=== PATIENT | male | born 1955 | race Caucasian/White ===

== ENCOUNTER 2020-05-02 02:01 | Outpatient (CLI) | payer BC, SELFPAY ==
[2020-05-02 19:20] LABS: SARS-CoV-2 RNA PCR Negative
== END 2020-05-02 02:02 | disposition home or self-care (01) ==
LOC: ANHCOVIDDT 02:01
PROVIDERS: PCP Internal Medicine; Visit Provider Internal Medicine Gastroenterology
DX: Z01.812 Encounter for preprocedural laboratory examination (principal); Z20.828 Contact with and (suspected) exposure to other viral communicable diseases
CPT/HCPCS: 87635; C9803; U0003

== ENCOUNTER 2020-05-04 01:51 | Day surgery (SDC) | payer BC, SELFPAY ==
[2020-04-25 10:55] VITALS: BMI 36.3
[2020-05-04 07:37] VITALS: BP 143/72; PULSE 67; RESP 20; TEMP 36.4; O2SAT 98
--- NOTE | 2020-05-04 07:42 | WPDANESEPPF ---
Anes - Initial Pre Proc Eval Procedure: Operation Date: 05/04/20 08:30 Proposed Procedures p Screening Colonoscopy - Aki Augustin MD Date/Time: 05/04/20 07:42 Surgeon: Aki Augustin MD Pre Op Diagnosis: hx of polyps Patient Data Age: 65 Gender: M Height: 1.83 m Weight: 121.8 kg Allergies Allergy/AdvReac Type Severity Reaction Status Date / Time No Known Allergies Allergy Verified 05/04/20 07:24 Home Medications Medication Instructions Recorded Confirmed Type adalimumab [Humira(CF) Pen] 40 mg SUBCUT USEASDIRECTD 04/25/20 04/25/20 History apixaban [Eliquis] 5 mg PO BID 04/25/20 04/25/20 History aspirin [Adult Low Dose Aspirin] 81 mg PO DAILY 04/25/20 04/25/20 History bupropion HCl 150 mg PO BID 04/25/20 04/25/20 History diltiazem HCl 90 mg PO TID 04/25/20 04/25/20 History dofetilide 500 mcg PO BID 04/25/20 04/25/20 History losartan 50 mg PO DAILY 04/25/20 04/25/20 History magnesium oxide 400 mg PO BID 04/25/20 04/25/20 History methotrexate sodium 20 mg PO WEEKLY 04/25/20 04/25/20 History nabumetone 750 mg PO DAILY 04/25/20 04/25/20 History omega 6-zdr-npy-fish oil [[place]-3] 1 cap PO BID 04/25/20 04/25/20 History rosuvastatin 20 mg PO DAILY 04/25/20 04/25/20 History spironolactone 50 mg PO DAILY 04/25/20 04/25/20 History Patient hx anesthesia problems: none Family hx anesthesia problems: none PMFSH Past Medical History Medical History (Updated 05/04/20 @ 07:46 by Willian Staley MD) Atrial fibrillation FIB ABALATION CAD (coronary artery disease) HTN (hypertension) Hypercholesterolemia Obesity Pacemaker Psoriasis Rheumatoid arthritis Surgical History Surgical History (Updated 05/04/20 @ 07:46 by Willian Staley MD) Hx of cardiac catheterization STENTS Social History Social History Smoking status: Former smoker Tobacco type: cigarettes Additional smoking assessment comments: QUIT 2008 Alcohol intake: former Alcohol use details: OCCASSIONAL SOCIAL DRINKER. Substance use: never Substance use type: does not use Living arrangements: with family Gender identity (if verbalized by the patient): Male Spiritual care concerns: No Anes - Eval Final PreProcedure Day of Procedure 05/04/20 07:42 Patient weight: obese Heart: regular rate and rhythm Lungs: clear to auscultation and normal air movement Airway: Mallampati scale class II Neurological: alert and oriented Last oral intake: >/= 8 hours ASA classification: III Emergent: no Anesthetic plan: proceed Anesthesia type and monitoring: general GIVS Informed Consent: The patient's anesthetic plan and its attendant risks and benefits were discussed with the patient/family/POA. Questions were solicited and answers provided to the satisfaction of the patient/family/POA.
[2020-05-04 07:44] VITALS: BMI 36.8
[2020-05-04] MEDS: LACTATED RINGERS 1,000 ML 150 ML IV CONT (07:51)
--- NOTE | 2020-05-04 07:53 | PM.HPGS ---
History of Present Illness History of Present Illness Consent: Risks, benefits, and alternatives have been discussed and questions answered. Patient agrees to proceed with procedure. Chief complaint: hx of polyps Narrative: James Jack is a 65 year old W male Referred for screening colonoscopy secondary history of colonic polyps. Patient had a 1 cm adenomatous polyp removed 5 years ago. Patient is asymptomatic. Patient is on Eliquis for atrial fibrillation he did stop this several days ago. There is no family history of colon polyps or colon cancer. [facility] Past Medical History Medical History Atrial fibrillation FIB ABALATION CAD (coronary artery disease) HTN (hypertension) Hypercholesterolemia Obesity Pacemaker Psoriasis Rheumatoid arthritis Surgical History Surgical History Hx of cardiac catheterization STENTS Social History Social History Smoking status: Former smoker Tobacco type: cigarettes Additional smoking assessment comments: QUIT 2009 Alcohol intake: former Alcohol use details: OCCASSIONAL SOCIAL DRINKER. Substance use: never Substance use type: does not use Living arrangements: with family Gender identity (if verbalized by the patient): Male Spiritual care concerns: No Meds Home Medications and Allergies Home Medications Medication Instructions Recorded Confirmed Type adalimumab [Humira(CF) Pen] 40 mg SUBCUT USEASDIRECTD 04/25/20 04/25/20 History apixaban [Eliquis] 5 mg PO BID 04/25/20 04/25/20 History aspirin [Adult Low Dose Aspirin] 81 mg PO DAILY 04/25/20 04/25/20 History bupropion HCl 150 mg PO BID 04/25/20 04/25/20 History diltiazem HCl 90 mg PO TID 04/25/20 04/25/20 History dofetilide 500 mcg PO BID 04/25/20 04/25/20 History losartan 50 mg PO DAILY 04/25/20 04/25/20 History magnesium oxide 400 mg PO BID 04/25/20 04/25/20 History methotrexate sodium 20 mg PO WEEKLY 04/25/20 04/25/20 History nabumetone 750 mg PO DAILY 04/25/20 04/25/20 History omega 3-oto-eam-fish oil [[place]-3] 1 cap PO BID 04/25/20 04/25/20 History rosuvastatin 20 mg PO DAILY 04/25/20 04/25/20 History spironolactone 50 mg PO DAILY 04/25/20 04/25/20 History Allergies Allergy/AdvReac Type Severity Reaction Status Date / Time No Known Allergies Allergy Verified 05/04/20 07:24 Vital Signs Vital Signs - 24 hr 05/04/20 07:37 Temperature 36.4 C Pulse Rate 67 Respiratory Rate 20 Blood Pressure 143/72 H Pulse Oximetry 98 Exam Const: Orientation/consciousness: patient oriented x3 Resp: Auscultation: clear to auscultation bilaterally Cardio: Rate: regular rate Rhythm: regular rhythm Heart sounds: no murmurs GI: GI Palp: Yes Soft to palpation, No Tenderness to palpation present (GI), Yes No hepatosplenomegaly present and No Palpable mass present Auscultation: normal bowel sounds Neuro: General: patient oriented x3 and no focal motor deficits Extrem: General: no pedal edema Assessment and Plan Additional Plan Screening colonoscopy secondary history of colonic polyps
[2020-05-04 08:44] VITALS: BP 106/65; PULSE 65; RESP 20; O2SAT 100
[2020-05-04 08:54] VITALS: BP 115/65; PULSE 65; RESP 20; O2SAT 100
[2020-05-04 09:04] VITALS: BP 115/57; PULSE 65; RESP 15; O2SAT 100
== END 2020-05-04 09:19 | disposition home or self-care (01) ==
PROVIDERS: PCP Internal Medicine; Visit Provider Internal Medicine Gastroenterology
PROC: 0DJD8ZZ Inspection of Lower Intestinal Tract, Via Natural or Artificial Opening Endoscopic (ICD-10-PCS; CPT 45378; principal; 2020-05-04 08:30)
DX: Z12.11 Encounter for screening for malignant neoplasm of colon (principal); K62.1 Rectal polyp; K57.30 Diverticulosis of large intestine without perforation or abscess without bleeding; K64.4 Residual hemorrhoidal skin tags; I48.91 Unspecified atrial fibrillation; I10 Essential (primary) hypertension; I25.10 Atherosclerotic heart disease of native coronary artery without angina pectoris; E78.00 Pure hypercholesterolemia, unspecified; M06.9 Rheumatoid arthritis, unspecified; L40.9 Psoriasis, unspecified; Z95.0 Presence of cardiac pacemaker; Z79.01 Long term (current) use of anticoagulants; Z79.82 Long term (current) use of aspirin; Z95.5 Presence of coronary angioplasty implant and graft; Z87.891 Personal history of nicotine dependence; E66.9 Obesity, unspecified; Z68.36 Body mass index [BMI] 36.0-36.9, adult
CPT/HCPCS: 45385; 88305; J2704; J7120

== ENCOUNTER 2023-02-28 13:50 | Emergency (ER) | payer MEDICARE, SELFPAY ==
--- NOTE | ~2023-02-28 | XR_ITS ---
EXAM: XR tibia fibula RT 2V DATE: 02/28/2023 15:04 HISTORY: HIT WITH ANCHOR IN PROX POST/LAT-SWELLING/PAIN . COMPARISON: None available. FINDINGS: Decreased mineralization. No fracture or dislocation. No lytic or blastic lesion. Mild kne e and ankle degenerative change. No erosion or periosteal change. Mild diffuse subcutaneous edema. At herosclerotic calcifications. IMPRESSION: No acute osseous finding in the right tibia/fibula. Reviewed, dictated and finalized at location K.
[2023-02-28 13:59] VITALS: BP 135/65; PULSE 60; RESP 16; TEMP 36.4; O2SAT 97
[2023-02-28] MEDS: TETANUS,DIPHTHERIA,AC PERTUSSIS ADULT (0.5 ML) BOOSTRIX IM (14:12)
--- NOTE | 2023-02-28 14:51 | ED.GENADULT ---
HPI - General Adult General Chief complaint: Extremity Injury, Lower Stated complaint: Injury To Right Leg Source: patient Mode of arrival: ambulatory Limitations: no limitations History of Present Illness HPI narrative: Patient presents for evaluation of right knee pain and swelling x 1 week. He states he accidentally hit the lateral aspect of his knee with an anchor. He has experienced pain rated as 4/10 in severity since that time. He has associated redness and swelling. No drainage from the area. He is not diabetic. Date of last tetanus. He is anticoagulated with eliquis. Related Data Home Medications Medication Instructions Recorded Confirmed adalimumab 40 mg/0.4 mL 40 mg subcut USEASDIRECTD 04/25/20 02/28/23 subcutaneous pen kit (Humira(CF) Pen) apixaban 5 mg tablet (Eliquis) 5 mg PO BID 04/25/20 02/28/23 bupropion HCl 150 mg tablet,12 hr 150 mg PO BID 04/25/20 02/28/23 sustained-release diltiazem HCl 90 mg tablet 90 mg PO TID 04/25/20 02/28/23 dofetilide 500 mcg capsule 500 mcg PO BID 04/25/20 02/28/23 losartan 50 mg tablet 50 mg PO DAILY 04/25/20 02/28/23 magnesium oxide 400 mg (241.3 mg 400 mg PO BID 04/25/20 02/28/23 magnesium) tablet methotrexate sodium 2.5 mg tablet 20 mg PO WEEKLY 04/25/20 02/28/23 omega 3 350 mg-dha 235 mg-epa 90 1 cap PO BID 04/25/20 02/28/23 mg-fish oil 597 mg capsule,delay rel ([place]-3) rosuvastatin 20 mg tablet 20 mg PO DAILY 04/25/20 02/28/23 spironolactone 50 mg tablet 50 mg PO DAILY 04/25/20 02/28/23 Allergies Allergy/AdvReac Type Severity Reaction Status Date / Time No Known Allergies Allergy Verified 02/28/23 14:15 Review of Systems Review of Systems: CONSTITUTIONAL: Denies fever, chills, or sweats. EYES: Denies visual changes, redness, or discharge. ENT: Denies rhinorrhea, congestion, sore throat, or otalgia. CARDIOVASCULAR: Denies chest pain, palpitations, or edema. RESPIRATORY: Denies cough or dyspnea. GASTROINTESTINAL: Denies abdominal pain, nausea, vomiting, or diarrhea. GENITOURINARY: Denies dysuria or hematuria. SKIN: Reports swollen area of erythema to the right lateral proximal lower leg MUSCULOSKELETAL: Pain in proximal aspect of right lower leg. NEUROLOGIC: Denies headache, numbness, dizziness, or weakness. PSYCHIATRIC: Denies anxiety or depression. [facility] Past Medical History Medical History (Updated 02/28/23 @ 16:12 by IRIS Eden, ) Atrial fibrillation FIB ABALATION CAD (coronary artery disease) Hematoma HTN (hypertension) Hypercholesterolemia Obesity Pacemaker Psoriasis Rheumatoid arthritis Surgical History Surgical History Hx of cardiac catheterization STENTS Social History Social History Smoking status: Former smoker Tobacco type: cigarettes Additional smoking assessment comments: QUIT 2009 Alcohol intake: former Alcohol use details: OCCASSIONAL SOCIAL DRINKER. Substance use: never Substance use type: does not use Living arrangements: with family Gender identity (if verbalized by the patient): Male Spiritual care concerns: No Exam Narrative: GENERAL: Well-appearing, well-nourished, and in no acute distress. HEAD: Normocephalic, atraumatic. EYES: PERRLA and EOMI. ENT: Nares clear, no rhinorrhea or epistaxis. Mucous membranes moist. Oropharynx without tonsillar hypertrophy exudate or other lesions. Bilateral TMs pearly [place] nonbulging NECK: Supple. No adenopathy or masses. No carotid bruits or JVD CHEST: Clear to auscultation. No respiratory distress. No wheezes rales or rhonchi HEART: Regular rate and rhythm. No murmur heard. Normal peripheral pulses. ABDOMEN: Soft, nontender, nondistended, normal active bowel sounds. EXTREMITIES: Normal range of motion. No edema. SKIN: Approximately 4.5 cm area that is raised, and erythematous with than overlying sc
== END 2023-02-28 16:15 | disposition home or self-care (01) ==
PROVIDERS: Emergency Provider Nurse Practitioner; PCP Internal Medicine
DX: S80.11XA Contusion of right lower leg, initial encounter (principal); W22.8XXA Striking against or struck by other objects, initial encounter; Z23 Encounter for immunization; I25.10 Atherosclerotic heart disease of native coronary artery without angina pectoris; I10 Essential (primary) hypertension; E78.00 Pure hypercholesterolemia, unspecified; E66.9 Obesity, unspecified; Z68.34 Body mass index [BMI] 34.0-34.9, adult; Z95.0 Presence of cardiac pacemaker; L40.9 Psoriasis, unspecified; M06.9 Rheumatoid arthritis, unspecified; Z87.891 Personal history of nicotine dependence; Z79.01 Long term (current) use of anticoagulants
CPT/HCPCS: 73590; 90471; 90715; 99213; G0463

== ENCOUNTER 2023-03-13 17:50 | Emergency (ER) | payer MEDICARE, SELFPAY ==
[2023-03-13 17:56] VITALS: BP 149/73; PULSE 77; RESP 16; TEMP 36.5; O2SAT 98
--- NOTE | 2023-03-13 17:58 | ED.GENADULT ---
HPI - General Adult General Chief complaint: Skin/Abscess/Foreign Body Stated complaint: Right leg possible cellulitis Source: patient and RN notes reviewed Mode of arrival: ambulatory History of Present Illness HPI narrative: 68-year-old male presents to [facility] today complaining of possible cellulitis to his right lower leg. Patient was recently treated with antibiotics for an abscess in his right lower leg in the proximal portion of his lateral calf. Patient just finished clindamycin and saw rash forming below his abscess on his right lower calf. Since then patient has notice a rash located on his legs, trunk, and arms. Patient thought it might have been sun rash. Patient denies it his right lower leg being hot to touch, denies any drainage, denies any new swelling. Patient does have history of heart disease and states having lower extremity edema that is chronic. Patient denies being diabetic but was told that he was prediabetic then. Related Data Home Medications Medication Instructions Recorded Confirmed adalimumab 40 mg/0.4 mL 40 mg subcut USEASDIRECTD 04/25/20 03/13/23 subcutaneous pen kit (Humira(CF) Pen) apixaban 5 mg tablet (Eliquis) 5 mg PO BID 04/25/20 03/13/23 bupropion HCl 150 mg tablet,12 hr 150 mg PO BID 04/25/20 03/13/23 sustained-release diltiazem HCl 90 mg tablet 90 mg PO TID 04/25/20 03/13/23 dofetilide 500 mcg capsule 500 mcg PO BID 04/25/20 03/13/23 losartan 50 mg tablet 50 mg PO DAILY 04/25/20 03/13/23 magnesium oxide 400 mg (241.3 mg 400 mg PO BID 04/25/20 03/13/23 magnesium) tablet methotrexate sodium 2.5 mg tablet 20 mg PO WEEKLY 04/25/20 03/13/23 omega 3 350 mg-dha 235 mg-epa 90 1 cap PO BID 04/25/20 03/13/23 mg-fish oil 597 mg capsule,delay rel ([place]-3) rosuvastatin 20 mg tablet 20 mg PO DAILY 04/25/20 03/13/23 spironolactone 50 mg tablet 50 mg PO DAILY 04/25/20 03/13/23 Allergies Allergy/AdvReac Type Severity Reaction Status Date / Time No Known Allergies Allergy Verified 02/28/23 14:15 Review of Systems Review of Systems: CONSTITUTIONAL: Denies fever, chills, or sweats. EYES: Denies visual changes, redness, or discharge. ENT: Denies otalgia and sore throat CARDIOVASCULAR: Denies chest pain, palpitations, or edema. RESPIRATORY: Denies cough or dyspnea. GASTROINTESTINAL: Denies abdominal pain, nausea, vomiting, or diarrhea. GENITOURINARY: Denies dysuria or hematuria. SKIN: Positive for rash negative for itching. Positive for abscess to right proximal lateral calf. MUSCULOSKELETAL: Denies back pain, joint pain, or myalgia. NEUROLOGIC: Denies headache, numbness, or weakness. Pertinent positives per HPI. [facility] Past Medical History Medical History (Updated 03/13/23 @ 18:49 by Cha Vilchis, TINA) Atrial fibrillation FIB ABALATION CAD (coronary artery disease) Hematoma HTN (hypertension) Hypercholesterolemia Obesity Pacemaker Psoriasis Rheumatoid arthritis Surgical History Surgical History Hx of cardiac catheterization STENTS Social History Social History Smoking status: Former smoker Tobacco type: cigarettes Additional smoking assessment comments: QUIT 2009 Alcohol intake: former Alcohol use details: OCCASSIONAL SOCIAL DRINKER. Substance use: never Substance use type: does not use Living arrangements: with family Gender identity (if verbalized by the patient): Male Spiritual care concerns: No Comments At the time of my signature, I reviewed and agree with the nursing past medical, surgical, social, and family history. There is no relevant family history pertinent to the patient complaint. Exam Narrative: GENERAL: This is a well-nourished, well-developed patient, in no apparent distress. HEAD: normocephalic, atraumatic. EYES: Sclera clear/white. Vision is grossly intact. EARS: Exte
== END 2023-03-13 18:50 | disposition home or self-care (01) ==
PROVIDERS: Emergency Provider Nurse Practitioner Family; PCP Internal Medicine
DX: L27.0 Generalized skin eruption due to drugs and medicaments taken internally (principal); T36.8X5A Adverse effect of other systemic antibiotics, initial encounter; I25.10 Atherosclerotic heart disease of native coronary artery without angina pectoris; I10 Essential (primary) hypertension; E78.00 Pure hypercholesterolemia, unspecified; Z95.0 Presence of cardiac pacemaker; L40.9 Psoriasis, unspecified; M06.9 Rheumatoid arthritis, unspecified; E66.9 Obesity, unspecified; Z68.34 Body mass index [BMI] 34.0-34.9, adult; Z95.5 Presence of coronary angioplasty implant and graft; Z87.891 Personal history of nicotine dependence; R21 Rash and other nonspecific skin eruption
CPT/HCPCS: 99213; G0463